=== PATIENT | male | born 1990 | race African-American/Black ===

== ENCOUNTER 2016-05-01 18:57 | Emergency (ER) | payer SELFPAY ==
[~2016-05-01] VITALS: Ht 177.8 cm; Wt 65.9 kg
[~2016-05-01 18:57] MED LIST: NO HOME MEDICATIONS
[2016-05-01 18:59] VITALS: BP 129/85; TEMP 98.6
[2016-05-01] MEDS ORDERED: PREDNISONE20 MG PO (20:35)
[2016-05-01 20:46] VITALS: PULSE 69
== END 2016-05-01 20:48 | disposition home or self-care (01) ==
LOC: COL.ER 18:57
DX: R07.89 Other chest pain (principal); F17.210 Nicotine dependence, cigarettes, uncomplicated
CPT/HCPCS: J1885; J7512

== ENCOUNTER 2017-08-19 15:16 | Emergency (ER) | payer SELFPAY ==
[~2017-08-19] VITALS: Ht 175.3 cm; Wt 77.3 kg
[~2017-08-19 15:16] MED LIST changes: +PREDNISONE20 MG PO
[2017-08-19 15:24] VITALS: BP 143/77; PULSE 76; TEMP 97.6
[2017-08-19] MEDS ORDERED: FLEXERIL 1010 MG/TAB PO (16:10)
[2017-08-19] MEDS ORDERED: MEDROL 4MG DOSPA4 MG PO (16:10)
== END 2017-08-19 16:25 | disposition home or self-care (01) ==
LOC: COL.ER 15:16
DX: M54.31 Sciatica, right side (principal); F17.210 Nicotine dependence, cigarettes, uncomplicated

== ENCOUNTER 2017-09-21 12:33 | Emergency (ER) | payer SELFPAY ==
[~2017-09-21] VITALS: Ht 177.8 cm; Wt 79.5 kg
[~2017-09-21 12:33] MED LIST changes: +FLEXERIL 1010 MG/TAB PO; +MEDROL 4MG DOSPA4 MG PO
[2017-09-21 12:42] VITALS: BP 141/83; PULSE 86; TEMP 98
[2017-09-21] MEDS ORDERED: MEDROL 4MG DOSPA4 MG PO (14:57)
[2017-09-21] MEDS ORDERED: NORCO 325 MG-51 TAB PO (14:57)
== END 2017-09-21 15:15 | disposition home or self-care (01) ==
LOC: COL.ER 12:33
DX: M54.31 Sciatica, right side (principal)
CPT/HCPCS: J1885

== ENCOUNTER 2017-10-10 21:53 | Emergency (ER) | payer SELFPAY ==
[~2017-10-10] VITALS: Ht 177.8 cm; Wt 76.4 kg
[~2017-10-10 21:53] MED LIST changes: +NORCO 325 MG-51 TAB PO
[2017-10-10 21:55] VITALS: TEMP 99.1
[2017-10-10] MEDS ORDERED: NORCO 325 MG-51 TAB PO (23:18)
[2017-10-10 23:29] VITALS: BP 132/66; PULSE 77
== END 2017-10-10 23:49 | disposition home or self-care (01) ==
LOC: COL.ER 21:53
DX: S92.411A Displaced fracture of proximal phalanx of right great toe, initial encounter for closed fracture (principal); S92.511A Displaced fracture of proximal phalanx of right lesser toe(s), initial encounter for closed fracture; W23.0XXA Caught, crushed, jammed, or pinched between moving objects, initial encounter; Y92.89 Other specified places as the place of occurrence of the external cause

== ENCOUNTER 2018-08-29 13:47 | Emergency (ER) | payer SELFPAY ==
[~2018-08-29] VITALS: Ht 172.7 cm; Wt 61.4 kg
[2018-08-29 14:11] VITALS: BP 128/78; TEMP 97.7
[2018-08-29 16:01] VITALS: PULSE 49
== END 2018-08-29 16:01 | disposition home or self-care (01) ==
LOC: COL.ER 13:47
DX: S40.012A Contusion of left shoulder, initial encounter (principal); F17.210 Nicotine dependence, cigarettes, uncomplicated; V19.9XXA Pedal cyclist (driver) (passenger) injured in unspecified traffic accident, initial encounter; Y92.480 Sidewalk as the place of occurrence of the external cause
CPT/HCPCS: J1885

== ENCOUNTER 2019-03-16 13:22 | Emergency (ER) | payer SELFPAY ==
[~2019-03-16] VITALS: Ht 172.7 cm; Wt 61.4 kg
[2019-03-16 13:32] VITALS: BP 119/72; TEMP 98.2
[2019-03-16] MEDS ORDERED: ZITHROMAX 250M250 MG PO (15:48)
[2019-03-16 16:12] VITALS: PULSE 56
== END 2019-03-16 16:13 | disposition home or self-care (01) ==
LOC: COL.ER 13:22
DX: J06.9 Acute upper respiratory infection, unspecified (principal); F17.210 Nicotine dependence, cigarettes, uncomplicated

== ENCOUNTER 2020-05-21 13:38 | Emergency (ER) | payer SELFPAY ==
[~2020-05-21] VITALS: Ht 172.7 cm; Wt 65.9 kg
[~2020-05-21 13:38] MED LIST changes: +ZITHROMAX 250M250 MG PO
[2020-05-21 13:59] VITALS: TEMP 97.8
[2020-05-21 14:45] VITALS: BP 125/89; PULSE 72
== END 2020-05-21 14:32 | disposition home or self-care (01) ==
LOC: COL.ER 13:38
DX: R22.31 Localized swelling, mass and lump, right upper limb (principal); F17.210 Nicotine dependence, cigarettes, uncomplicated

== ENCOUNTER 2020-11-15 19:57 | Emergency (ER) | payer SELFPAY ==
[~2020-11-15] VITALS: Ht 172.7 cm; Wt 61.4 kg
[2020-11-15] MEDS ORDERED: PEN-VEE K500 MG PO (20:31)
[2020-11-15 20:50] VITALS: BP 124/64; PULSE 56; TEMP 97.2
== END 2020-11-15 20:53 | disposition home or self-care (01) ==
LOC: COL.ER 19:57
DX: J02.9 Acute pharyngitis, unspecified (principal)

== ENCOUNTER 2021-05-16 02:29 | Emergency (ER) | payer BC ==
[~2021-05-16] VITALS: Ht 172.7 cm; Wt 65.9 kg
[~2021-05-16 02:29] MED LIST changes: +PEN-VEE K500 MG PO
[2021-05-16 02:32] VITALS: TEMP 98.1
[2021-05-16] MEDS ORDERED: NAPROSYN500 MG PO (02:40)
[2021-05-16] MEDS ORDERED: PEN-VEE K500 MG PO (02:40)
[2021-05-16 02:51] VITALS: BP 123/83; PULSE 71
== END 2021-05-16 02:50 | disposition home or self-care (01) ==
LOC: COL.ER 02:29
DX: K08.89 Other specified disorders of teeth and supporting structures (principal); K02.9 Dental caries, unspecified

== ENCOUNTER 2021-07-22 10:44 | Emergency (ER) | payer BC ==
[~2021-07-22] VITALS: Ht 172.7 cm; Wt 65.9 kg
[~2021-07-22 10:44] MED LIST changes: +NAPROSYN500 MG PO
[2021-07-22 10:50] VITALS: TEMP 98.5
[2021-07-22 11:26] VITALS: BP 132/105; PULSE 62
== END 2021-07-22 11:30 | disposition home or self-care (01) ==
LOC: COL.ER 10:44
DX: S61.412A Laceration without foreign body of left hand, initial encounter (principal); F17.200 Nicotine dependence, unspecified, uncomplicated; Z28.310 Unvaccinated for COVID-19; Z23 Encounter for immunization; W26.0XXA Contact with knife, initial encounter